=== PATIENT | male | born 1960 | race Caucasian/White ===

== ENCOUNTER 2017-11-04 20:43 | Emergency (ER) | payer OTHER ==
[~2017-11-04] VITALS: Ht 182.9 cm; Wt 139.8 kg
[2017-11-04 20:47] VITALS: BP 137/91
== END 2017-11-04 21:43 | disposition home or self-care (01) ==
LOC: ED 21:38
DX: H93.12 Tinnitus, left ear (principal)
CPT/HCPCS: 99281